=== PATIENT | female | born 1975 | race Caucasian/White ===

== ENCOUNTER 2025-08-04 12:45 | Emergency (ER) | payer SELFPAY ==
--- NOTE | 2025-08-04 12:46 | ED.EXTPRO ---
HPI - Extremity Problem General Stated complaint: R Leg Pain Time Seen by Provider: 08/04/25 12:46 Source: patient Mode of arrival: ambulatory Limitations: no limitations History of Present Illness HPI Narrative: Gokul is a 49 year old female patient presenting to the clinic today with c/o right leg pain x. She reports. Review of Systems Review of Systems: Pertinent positives per HPI. Patient denies any fever, chills, rash, headache, visual changes, dizziness, cough, runny nose, sore throat, shortness of breath, chest pain, palpitations, nausea, vomiting, diarrhea, constipation, abdominal pain, or any urinary issues. PMFSH Comments At the time of my signature, I reviewed and agree with the nursing past medical, surgical, social, and family history. There is no relevant family history pertinent to the patient complaint. Exam Narrative: General: Well-developed, well nourished, in no apparent distress Head: Normocephalic, atraumatic. Cardio: Regular rate and rhythm, s1 and s2 normal, no murmur appreciated. Resp: Clear to auscultation bilaterally, no rhonchi, rales, wheezing or rubs. Musculoskeletal: No deformity, non-tender to palpation, grossly normal range of motion, muscle strength strong and equal, peripheral pulse strong, no edema, no cyanosis, normal gait and station Course Course Level of Care: Express Care Visit MDM MDM Narrative Medical decision making narrative: At the time of visit patient is resting comfortably on the exam table. Patient appears to be nontoxic. Plan: Supportive measures were discussed with the patient and they voiced understanding discharge instructions and agrees to treatment plan. Return precautions reviewed Differential Diagnosis Differential Diagnosis: Differential diagnostic considerations for extremity problems include sprain/strain, fracture, DVT, herpes zoster, gout, cellulitis, superficial thrombophlebitis, physiologic edema. Discharge Plan Discharge Patient Language: Portuguese Follow-up/Referrals: UNKNOWN,DOCTOR [Non-Staff] Quality NIHSS Nursing Documentation ED NIHSS nursing documentation: reviewed/agree
--- NOTE | 2025-08-04 12:51 | ED.ABDPAIN ---
HPI - Abdominal Pain General Chief Complaint: Abdominal Pain Stated Complaint: R Leg Pain Time Seen by Provider: 08/04/25 12:46 Source: patient Mode of arrival: ambulatory Limitations: no limitations History of Present Illness HPI narrative: Gokul is a 49 year old female patient presenting to the clinic today with c/o right lower quadrant abdomen pain that started at 0700 this morning. She reports sharp right lower quadrant pain- pain is worse with movement of her right leg. Rates pain 8/10 currently. Took Tylenol at 1030 this morning with some relief. No recent falls, pulled muscle, or known injury. History of partial hyst- still has left ovary. No urinary symptoms or flank pain. No fever, chills, body aches, nausea, or vomiting. Last BM was yesterday and normal for the patient. Related Data Home Medications ?Medication ?Instructions ?Recorded ?Confirmed ?Last Taken ?Type levothyroxine 50 mcg tablet mcg 08/04/25 Unknown History Allergies Allergy/AdvReac Type Severity Reaction Status Date / Time No Known Allergies Allergy Verified 08/04/25 12:55 Review of Systems Review of Systems: Pertinent positives per HPI. Patient denies any fever, chills, rash, headache, visual changes, dizziness, cough, runny nose, sore throat, shortness of breath, chest pain, palpitations, nausea, vomiting, diarrhea, constipation, or any urinary issues. PMFSH Comments At the time of my signature, I reviewed and agree with the nursing past medical, surgical, social, and family history. There is no relevant family history pertinent to the patient complaint. Exam Narrative: General: Well-developed, obese, in no apparent distress. Head: Normocephalic, atraumatic. Cardio: Regular rate and rhythm, s1 and s2 normal, no murmur appreciated. Resp: Clear to auscultation bilaterally, no rhonchi, rales, wheezing or rubs. Abdomen: Soft, pliable, bowel sounds present in all quadrants, right lower quadrant abdomen tender to palpation, worsening with flexion of the right hip, no organomegly, no CVAT tenderness. Course Course Level of Care: Express Care Visit Vital Signs Vital signs: Vital Signs Temperature 36.8 C 08/04/25 12:56 Pulse Rate 90 08/04/25 12:56 Respiratory Rate 16 08/04/25 12:56 Blood Pressure 133/88 08/04/25 12:56 Pulse Oximetry 97 08/04/25 12:56 Temperature 36.8 C 08/04/25 12:56 Pulse Rate 90 08/04/25 12:56 Respiratory Rate 16 08/04/25 12:56 Blood Pressure 133/88 08/04/25 12:56 Pulse Oximetry 97 08/04/25 12:56 Transfer Transfered to: [facility] Transportation: Other (Private car) Transfer rationale: RLQ abdomen pain Accepting physician: Dr. Morrison Transfer comments: Private car- NPO MDM MDM Narrative Medical decision making narrative: At the time of visit patient is resting comfortably on the exam table. Patient appears to be nontoxic. C/o right lower quadrant abdomen pain that started at 0700 this morning. She reports sharp right lower quadrant pain- pain is worse with movement of her right leg. Rates pain 8/10 currently. Took Tylenol at 1030 this morning with some relief. No recent falls, pulled muscle, or known injury. History of partial hyst- still has left ovary. No urinary symptoms or flank pain. No fever, chills, body aches, nausea, or vomiting. Last BM was yesterday and normal for the patient. On exam patient has soft, pliable abdomen, nondistended, bowel sounds present all 4 quadrants, tenderness to palpation over the right lower quadrant and pain increases with movement of the right leg, no CVAT tenderness, no organomegaly Plan: Patient reporting sharp right lower quadrant abdominal pain-positive McBurney's point and pain with movement of the right leg. Recommend going to the ER for rule out appendicitis. Patient agrees to transfer and would like to go to [facility] emergency room. Report called to Dr. Morrison at [facility] and he accepts patient for transfer. Patient to go by private car-remain NPO Differential Diagnosis Differential Diagnosis: Differential diagnostic considerations for acute abdominal pain include surgical abdominal etiology, ischemic bowel, inflammatory bowel disease, gastritis, PUD, gastroenteritis, cardiac etiology, appendicitis, diverticulitis, bowel obstruction, kidney stone, pyelonephritis, abdominal aortic aneurysm, pancreatitis, constipation, surgical adhesions, hip muscle strain, endometriosis. Discharge Plan Discharge Clinical Impression: Abdominal pain, right lower quadrant Patient Disposition: Acute Care Hospital Condition: Stable Patient Language: Amharic Prescriptions: No Action levothyroxine 50 mcg tablet Follow-up/Referrals: UNKNOWN,DOCTOR [Non-Staff] Time of Disposition: 13:10 Quality NIHSS Nursing Documentation ED NIHSS nursing documentation: reviewed/agree
[2025-08-04 12:56] VITALS: BP 133/88; PULSE 90; RESP 16; TEMP 36.8; O2SAT 97
== END 2025-08-04 13:13 | disposition short-term general hospital (02) ==
PROVIDERS: Emergency Provider Nurse Practitioner Family; PCP Internal Medicine
DX: R10.31 Right lower quadrant pain (principal); E03.9 Hypothyroidism, unspecified
CPT/HCPCS: 99212; G0463

== ENCOUNTER 2025-08-04 13:33 | Emergency (ER) | payer SELFPAY ==
--- NOTE | ~2025-08-04 | US_ITS ---
EXAMINATION: US venous doppler LE RT, 08/04/2025 16:50 MEDICAL SPECIALIST HISTORY: pain Comparison: None Technique: Restrepo-scale and color Doppler images were attempted of the lower saphenofemoral junction, common femoral vein,superficial femoral vein, proximal deep femoral vein, proximal deep femoral vein, popliteal vein and posterior tibial veins. Findings: Deep Venous System:Normal flow, augmentation and compressibility. No echogenic thrombus identified. The contralateral saphenofemoral junction appears unremarkable. Superficial Venous SystemNo superficial thrombophlebitis. Soft tissues: Soft tissues are unremarkable. Impression: Negative for DVT. Reviewed, dictated and finalized at location P. CAL SPECIALIST Impression: Negative for DVT.
--- NOTE | ~2025-08-04 | CT_ITS ---
EXAM/PROCEDURE: CT abdomen pelvis w con HISTORY: RLQ pain COMPARISON: None available. TECHNIQUE: IV contrast enhanced CT of the abdomen and pelvis FINDINGS: Lung bases are clear other than minimal atelectatic and/or fibrotic appearing changes. Heart size normal. In the abdomen and pelvis, the bowel gas pattern is nonobstructive with no free air free fluid or pneumatosis. Patient appears to be status post hysterectomy. The appendix aorta and gallbladder all appear normal in size. No urolithiasis or obstructive ureteral stones. Mild pelvocaliectasis of the right kidney with no gross hydroureteronephrosis. The left kidney appears normal. Liver spleen pancreas and stomach as well as adrenal glands appear within normal limits for technique. No bulky mesenteric or retroperitoneal lymphadenopathy or masses seen. Small omentum containing umbilical hernia. Urinary bladder appears normal. Moderate amount of stool extends to the cecum. Diffuse degenerative changes throughout the bones. IMPRESSION: Mild pelvocaliectasis of the right kidney with no gross hydronephrosis or obstructing ureteral stones seen. The appendix appears normal. Reviewed, dictated and finalized at location A. LING MACHINE OPERATOR IMPRESSION: Mild pelvocaliectasis of the right kidney with no gross hydronephrosis or obstr ucting ureteral stones seen. The appendix appears normal.
[2025-08-04 13:56] VITALS: BP 133/87; PULSE 84; RESP 14; O2SAT 99
[2025-08-04 14:20] LABS: Hematocrit 43.3 % (37.0-47.0); Hemoglobin 14.5 g/dL (12.0-15.0); Immature Granulocyte Percent A 0.4 % (0-0.5); Lymphocytes Absolute Auto 1.28 K/mm3 (0.9-3.2); Mean Corpuscular HGB Conc 33.5 g/dl (32-36); Mean Corpuscular Hemoglobin 29.1 pg (26-34); Mean Corpuscular Volume 86.9 fl (80-100); Nucleated Red Blood Cells Absolute Auto 0.000 K/mm3 (0.0-0.012); Nucleated Red Blood Cells Perc 0.0 % (0.0-0.2); Platelet Count Result 291 k/mm3 (150-375); Red Blood Count 4.98 M/mm3 (4.2-5.4); White Blood Count 9.4 K/mm3 (4.5-10.0)
--- NOTE | 2025-08-04 14:23 | ED_ITS ---
HPI - Abdominal Pain General Chief Complaint: Abdominal Pain Stated Complaint: RLQ pain Time Seen by Provider: 08/04/25 13:44 History of Present Illness HPI narrative: Patient is a 49-year-old female who presents ER with pain to right lower quadrant and right inguinal crease. It began at 7:00 a.m. today. She can move her leg without having exquisite pain. It is only in this focal area. No radiation down leg. Numbness or tingling. Normal pulses. She does have pain in the right lower quadrant of the abdomen as well. Related Data Home Medications ?Medication ?Instructions ?Recorded ?Confirmed ?Last Taken ?Type levothyroxine 50 mcg tablet mcg 08/04/25 Unknown Hist ory Allergies Allergy/AdvReac Type Severity Reaction Status Date / Time No Known Allergies Allergy Verified 08/04/25 13:37 Review of Systems 2 Review of Systems: All systems reviewed & are unremarkable except as noted in HPI and below Constitutional: Constitutional: Reports no additional constitutional complaints Cardiovascular: Cardiovascular: Reports no additional cardiovascular complaints Respiratory: Respiratory: Reports no additional respiratory complaints Gastrointestinal: Gastrointestinal: Reports no additional gastrointestinal complaints Musculoskeletal: Musculoskeletal: Reports no additional musculoskeletal complaints PENDING SALE TO [facility] Past Medical History Medical History (Updated 08/04/25 @ 17:16 by Manfred Luna MD) Hypothyroidism Surgical History Surgical History (Updated 08/04/25 @ 14:27 by Manfred Luna MD) No history of previous surgery Exam 2 Narrative: GENERAL: Well-appearing, well-nourished, and in no acute distress. HEAD: Normocephalic, atraumatic. ENT: Mucous membranes moist. CHEST: Clear to auscultation. No respiratory distress. HEART: Regular rate and rhythm. Normal peripheral pulses. ABDOMEN: Soft, TTP RLQ with mild guarding, TTP right inguinal crease, nondistended. EXTREMITIES: RLE with pain at inguinal crease with minimal passive straight leg raise and leg rotation. NV intact. Normal LLE and BUE. No leg swelling. SKIN: Warm, dry, no rash. NEURO: Alert and oriented x3. PSYCH: Normal mood and affect. Course Course Emergency Course: Pain mildly improved with Toradol and morphine. Informed of imaging results. No DVT/appy. Suspect hip flexor strain and recommend rest/ice/elevation/nsaids. Vital Signs Vital signs: Vital Signs Pulse Rate 84 08/04/25 13:56 Respiratory Rate 14 08/04/25 13:56 Blood Pressure 133/87 08/04/25 13:56 Pulse Oximetry 99 08/04/25 13:56 Oxygen Delivery Room Air 08/04/25 13:56 Pulse Rate 74 08/04/25 14:46 Respiratory Rate 15 08/04/25 14:46 Blood Pressure 127/84 08/04/25 14:46 Pulse Oximetry 99 08/04/25 14:46 Oxygen Delivery Room Air 08/04/25 13:56 MDM Differential Diagnosis Differential Diagnosis: Lymphadenopathy, appendicitis, pyelonephritis, UTI, muscle strain, DVT Lab Data 08/04/25 14:15 08/04/25 14:15 Labs: Lab Results 08/04/25 08/04/25 Range/Units 14:15 14:32 WBC 9.4 (4.5-10.0) K/mm3 RBC 4.98 (4.2-5.4) M/mm3 Hgb 14.5 (12.0-15.0) g/dL Hct 43.3 (37.0-47.0) % MCV 86.9 (80-100) fl MCH 29.1 (26-34) pg MCHC 33.5 (32-36) g/dl RDW 12.4 (11.5-14.5) % Plt Count 291 (150-375) k/mm3 MPV 9.5 (7.4-10.4) fl Immature Gran % (Auto) 0.4 (0-0.5) % Neut % (Auto) 82.7 H (45.5-73.1) % Lymph % (Auto) 13.6 L (18.3-44.2) % Sanders % (Auto) 3.1 (2.6-8.5) % Eos % (Auto) 0.0 (0-4.4) % Baso % (Auto) 0.2 (0.2-1.2) % Lymph # (Auto) 1.28 (0.9-3.2) K/mm3 Sanders # (Auto) 0.3 (0.1-0.6) K/mm3 Eos # (Auto) 0.0 (0-0.3) K/mm3 Baso # (Auto) 0.0 (0.0-0.1) K/mm3 Abs Immat Gran (auto) 0.04 H (0.00-0.031) K/mm3 Absolute Neuts (auto) 7.8 H (1.3-6.7) K/mm3 Absolute Nucleated RBC 0.000 (0.0-0.012) K/mm3 Nucleated RBC % 0.0 (0.0-0.2) % Sodium 139 (137-145) mmol/L Potassium 4.3 (3.4-5.0) mmol/L Chloride 106 (98-107) mmol/L Carbon Dioxide 26 (22-30) mmol/L Anion Gap 7 (4-12) mmol/L BUN 16 (7-17) mg/dL Creatinine 0.69 L (0.7-1.0) mg/dL Estim Creat Clear Calc 85 ml/min Estimated GFR > 60 (59 - ) Glucose 109 (65-110) mg/dL Calcium 9.5 (8.4-10.2) mg/dL Total Bilirubin 0.5 (0.2-1.3) mg/dL AST 55 H (14-36) U/L ALT 66 H (6-35) U/L Alkaline Phosphatase 106 (38-126) U/L Total Protein 8.7 H (6.3-8.2) g/dL Albumin 4.9 (3.5-5.1) g/dL Lipase 67 (23-300) U/L Urine Color Yellow (Yellow) Urine Appearance Clear (Clear) Urine pH 6.5 (5.0-9.0) Ur Specific [place] 1.003 (1.001-1.035) Urine Protein Negative (Negative) mg/dL Urine Glucose (UA) Negative (Negative) mg/dL Urine Ketones Negative (Negative) mg/dL Ur Blood (Man) Negative (Negative) Urine Nitrate Negative (Negative) Urine Bilirubin Negative (Negative) Urine Urobilinogen 0.2 (<2.0) mg/dL Leukocyte Esterase Rfl Negative (Negative) ROZ/UL Imaging Data Radiologist's impression: ITS Impressions Abdomen/Pelvis CT 08/04/25 15:21 IMPRESSION: Mild pelvocaliectasis of the right kidney with no gross hydronephrosis or obstructing ureteral stones seen. The appendix appears normal. Venous Doppler Study 08/04/25 17:09 Impression: Negative for DVT. Discharge Plan Discharge Clinical Impression: Strain of flexor muscle of hip Patient Disposition: Home Condition: Stable Instructions: Muscle Strain (ED), P.R.I.C.E. Treatment (ED) Additional Instructions: Return ER if you have chest pain shortness of breath, you have increasing pain, or you have additional concerns. Patient Language: Mongolian Prescriptions: New cyclobenzaprine 10 mg tablet 10 mg PO TID PRN (Reason: muscle spasm) Qty: 14 0RF hydrocodone-acetaminophen 5-325 mg tablet 1 tablet PO Q6H PRN (Reason: pain) Qty: 14 0RF naproxen 375 mg tablet 375 mg PO BID Qty: 14 0RF No Action levothyroxine 50 mcg tablet Follow-up/Referrals: Ezio,MD Concepcion [Primary Care Provider, Unknown] - 1 Week
[2025-08-04] MEDS: KETOROLAC 30 MG/ML VIAL (*BKC) IV PUSH (14:25)
[2025-08-04] MEDS: SODIUM CHLORIDE 0.9% IV 1,000 ML 999 ML IV CONT (14:25)
[2025-08-04] MEDS: MORPHINE SULFATE (*CRX) 4 MG/ML INJ IV PUSH (14:25)
[2025-08-04 14:34] LABS: Alanine Aminotransferase 66 U/L (6-35); Albumin Level 4.9 g/dL (3.5-5.1); Alkaline Phosphatase 106 U/L (38-126); Anion Gap 7 mmol/L (4-12); Aspartate Amino Transferase 55 U/L (14-36); Bilirubin,Total 0.5 mg/dL (0.2-1.3); Blood Urea Nitrogen 16 mg/dL (7-17); Calcium 9.5 mg/dL (8.4-10.2); Carbon Dioxide 26 mmol/L (22-30); Chloride 106 mmol/L (98-107); Estimated CRCL calculation 85 ml/min; Estimated Glomerular Filt Rate > 60; Glucose 109 mg/dL (65-110); Lipase 67 U/L (23-300); Potassium 4.3 mmol/L (3.4-5.0); Sodium 139 mmol/L (137-145); Total Protein 8.7 g/dL (6.3-8.2)
[2025-08-04 14:37] LABS: Add Urine Microscopic? NO; Appearance Urine Clear (Clear); Glucose Urine UA Negative (Negative); Leukocyte Esterase Ur Negative LEU/UL (Negative); Nitrate Urine Negative (Negative); Specific Grav Ur 1.003 (1.001-1.035)
[2025-08-04 14:46] VITALS: BP 127/84; PULSE 74; RESP 15; O2SAT 99
[2025-08-04 17:15] VITALS: BP 112/80; PULSE 72; RESP 13; O2SAT 99
[2025-08-04 18:00] VITALS: BP 116/71; PULSE 74; RESP 15; O2SAT 100
--- OUTSIDE RECORDS SUMMARY | 2025-08-04 19:12 | XMS_ITS | Encounter Summary ---
Author Organization [facility] Address [address] [place] [address] Care Team Providers Care Gusset Ripper Name Role Phone Concepcion Holguin MD Primary Care Provider [phone] Encounter Details Date Type Department Care Team (Late st Contact Info) Description 05/22/2022 [employer] Message Enc [facility] - [address] [address] [address] [place] [address] [employer], [facility] Provider Lab results Social History Tobacco Use Types Packs/Day Years Used Date Smoking Tobacco: Never Smokeless Tobacco: Never Comments:counseled by Dr Nereida lawton Alcohol Use Standard Drinks/Week Comments Never 0 (1 standard drink = 0.6 oz pur e alcohol) PHQ-2 Answer Date Recorded PHQ-2 Score - If the patient scores above 3, please move on to questions 3-9 2 05/21/2022 Comments No Sex and Gender Information Value Date Recorded Sex Assigned at Not on file Legal Sex Female 10:03 AM CDT Gender Identity Not on file Sexual Orientation Not on file COVID-19 Exposure Response Date Recorded In the last 10 days, have yo u been in contact with someone who was confirmed or suspected to have Coronavirus/COVID-19? No / Unsure 05/21/2022 10:18 AM CDT documented as of this encounter Plan of Treatment Not on file documented as of this encounter Visit Diagnoses Not on filedocumented in this encounter Care Teams Gusset Ripper Relationship Specialty Start Date End Date Concepcion Holguin MD [address] [facility] [address] [place] [address] PCP - General INTERNAL MEDICINE 05/21/22 documented as of this encounter
--- OUTSIDE RECORDS SUMMARY | 2025-08-04 19:12 | XMS_ITS | Clinical Summary ---
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 TAKE 1 TABLET BY MOUTH ONCE DAILY IN THE MORNING 90 tablet 5 Active levothyroxine (SYNTHROID) 50 MCG tabletIndicatio ns: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 TAKE 1 TABLET BY MOUTH ONCE DAILY IN THE MORNING 90 tablet 5 025 Discontinued Active Problems Problem Noted Date Diagnosed Date Hypothyroid 05/21/2022 Anxiety 05/21/2022 Immunizations Immunization Administration Dates Next Due Tdap (Generic) 08/26/2019 Family History Medical History Relation Comments Heart Disease Father Heart surgery Relation Status Comments Father Social History Tobacco Use Types Packs/Day Years Used Date Smoking Tobacco: Never Passive Smoke Exposure: Never Smokeless Tobacco: Never Tobacco Cessation:Counseling Given: Yes Comments:counseled by Dr Holguin Alcohol Use Standard Drinks/Week Comments Never 0 (1 standard drink = 0.6 oz pur e alcohol) PHQ-2 Answer Date Recorded Patient Health Questionnaire-2 Score 0 10/10/2023 Comments No Sex and Gender Information Value Date Recorded Sex Assigned at Not on file Legal Sex Female 10:03 AM CDT Gender Identity Not on file Sexual Orientation Not on file Last Filed Vital Signs Vital Sign Reading Time Taken Comments Blood Pressure 129/84 04/06/2024 8:54 AM CDT Pulse 69 04/06/2024 8:54 AM CDT Temperature 36.4 C (97.5 F) 04/06/2024 8:54 AM CDT Respiratory Rate 18 04/06/2024 8:54 AM CDT Oxygen Saturation 97% 04/06/2024 8:54 AM CDT Inhaled Oxygen Concentration - - Weight 74.2 kg (163 lb 9.6 oz) 04/06/2024 8:54 A M CDT Height 157.5 cm (5' 2) 04/06/2024 8:54 AM CDT Body Mass Index 29.92 04/06/2024 8:54 AM CDT Plan of Treatment Health Maintenance Due Date Last Done Comments Hepatitis B Vaccines (1 of 3 - 19+ 3-dose series) 1992 Pneumococcal Vaccine: 50+ Years (1 of 1 - PCV) 12/30/2023 Zoster Vaccines (1 of 2) 12/30/2023 PHQ-2 (Physician [place]) 08/25/2024 10/10/2023 Annual Physical 09/12/2024 09/12/2023, 05/21/2022 COVID-19 Vaccine (3 - 2024-2 6 season) 2025 12/14/2020, 11/23/2020 Influenza Adult (#1) 2025 Colorectal Cancer Screening FIT-DNA (3 Years) 07/12/2025 07/12/2022, 07/12/2022 Mammogram Screening 11/19/2025 11/20/2023 DTaP, Tdap and Td Vaccines ( 2 - Td or Tdap) 08/26/2029 08/26/2019 Hepatitis C Completed 05/21/2022 Hepatitis A Vaccines Aged Out No long er eligible based on patient's age to complete this topic Meningococcal B Vaccine Aged Out No l onger eligible based on patient's age to complete this topic Meningococcal Vaccine Aged Out No nathaly marine eligible based on patient's age to complete this topic RSV Immunizations Under 20 Months Aged Out No longer eligible b ased on patient's age to complete this topic Procedures Procedure Name Priority Date/Time Associated Diagnosis Comments MG SCREENING W ELISEO CHIKI DIGI Routine 11/20/2023 2:45 PM CDT Encounter for screening mammogram for malignant neoplasm of breast COLOGUARD (EXACT SCIENCE) Routine 07/12/2022 11:45 AM NEWS PRODUCER Colon cancer screening HEPATITIS C ANTIBODY Routine 05/21/2022 11:46 AM CDT Annual physical exam Encounter for medical examination to establish care General medical exam Encounter for hepatitis C screening test for low risk patient from Last 3 Months or Most Recently Relevant to Health Maintenance Results * MG SCREENING W ELISEO CHIKI DIGI (11/20/2023 2:45 PM CDT) Anatomical Region Laterality Modality Breast Bilateral Mammography 11/20/2023 4:26 PM CDT Narrative 11/20/2023 4:30 PM CDT EXAMINATION: Digital bilateral screening mammogram with 3-D tomosynthesis EXAM DATE/TIME: 11/20/2023 2:42 PM REASON FOR EXAM: screening COMPARISON: Baseline exam Technique: Digital screening mammography of both breasts was performed in addition to 3-D Tomosynthesis technique. This study was read with the assistance of a computer-aided detection system. Tissue density: There are scattered areas of fibroglandular density. Findings: Benign lymph node in upper outer quadrant of the left breast. Benign nodularity. There is no focal asymmetry, dominant mass lesion, area of skin thickening, or cluster of suspicious appearing calcifications in either breast to suggest malignancy. ===== IMPRESSION: ===== 1. No mammographic evidence of malignancy Assessment: ACR BI-RADS 2 - BENIGN FINDING(S) Recommendation: 1:Routine Screening Bilateral Comments: Ordered By: CONCEPCION HOLGUIN Interpreted By: Jimy Chowdary, 11/20/2023 4:26 PM Concepcion Holguin MD MAMMO Final Result * COLOGUAYAQUELIN (EXACT SCIENCE) (07/12/2022 11:45 AM NEWS PRODUCER) COLOGUARD RESULT Negative Negative [employer] [facility] (CLIA #:[id number]) Comment: NEGATIVE TEST RESULT. A negative Cologuard result indicates a low likelihood that a colorectal cancer (CRC) or advanced adenoma (adenomatous polyps with more advanced pre-malignant features) is present. The chance that a person with a negative Cologuard test has a colorectal cancer is less than 1 in 1500 (negative predictive value >99.9%) or has an advanced adenoma is less than 5.3% (negative predictive value 94.7%). These data are based on a prospective cross-sectional study of 10,000 individuals at average risk for colorectal cancer who were screened with both Cologuard and colonoscopy. (Yoni Soler et al, N Engl J Med 2014;370(14):1035-2246) The normal value (reference range) for this assay is negative. COLOGUARD RE-SCREENING RECOMMENDATION: Periodic colorectal cancer screening is an important part of preventive healthcare for asymptomatic individuals at average risk for colorectal cancer. Following a negative Cologuard result, the [place] [employer] Society and U.S. Multi-Society Task Force screening guidelines recommend a Cologuard re-screening interval of 3 years. References: [place] [employer] Guideline for Colorectal Cancer Screening: https://www.cancer.org/cancer/hwccw-eisohd-zgeyym/hbupuaibc-gbmpqpgjp-hkalywq/ac s-rec ommendations.html.; Yovanny DK, Terrence CR, Galileo BernardK, Colorectal Cancer Screening: Recommendations for Physicians and Patients from the U.S. Multi-Society Task Force on Colorectal Cancer Screening , Am J Gastroenterology 2017; 112:0578-6636. TEST DESCRIPTION: Composite algorithmic analysis of stool DNA-biomarkers with hemoglobin immunoassay. Quantitative values of individual biomarkers are not reportable and are not associated with individual biomarker result reference ranges. Cologuard is intended for colorectal cancer screening of adults of either sex, 45 years or older, who are at average-risk for colorectal cancer (CRC). Cologuard has been approved for use by the U.S. FDA. The performance of Cologuard was established in a cross sectional study of average-risk adults aged 50-84. Cologuard performance in patients ages 45 to 49 years was estimated by sub-group analysis of near-age groups. Colonoscopies performed for a positive result may find as the most clinically significant lesion: colorectal cancer [4.0%], advanced adenoma (including sessile serrated polyps greater than or equal to 1cm diameter) [20%] or non- advanced adenoma [31%]; or no colorectal neoplasia [45%]. These estimates are derived from a prospective cross-sectional screening study of 10,000 individuals at average risk for colorectal cancer who were screened with both Cologuard and colonoscopy. (Yoni Friedman al, N Engl J Med 2014;370(14):7823-1612.) Cologuard may produce a false negative or false positive result (no colorectal cancer or precancerous polyp present at colonoscopy follow up). A negative Cologuard test result does not guarantee the absence of CRC or advanced adenoma (pre-cancer). The current Cologuard screening interval is every 3 years. ([place] [employer] and U.S. Multi-Society Task Force). Cologuard performance data in a 10,000 patient pivotal study using colonoscopy as the reference method can be accessed at the following location: www.[employer]/results. Additional description of the Cologuard test process, warnings and precautions can be found at www.[employer].com. STOOL STOOL SPECIMEN / Unknown 07/12/2022 11:45 AM NEWS PRODUCER 07/13/2022 11:31 AM NEWS PRODUCER Concepcion Holguin MD BODY FLUIDS AND STOOLS ORDERABLE S Final Result [facility], [facility] [address] [place] [address], [facility] (CLIA #:[id number]) [address] [place] [address] * HEPATITIS C ANTIBODY (05/21/2022 11:46 AM CDT) HEPATITIS C AB NON-REACTI VE NON-REACT ALECIA 05/21/2022 10:05 PM CDT [facility] Comment: ANTIBODIES TO HCV NOT DETECTED. DOES NOT EXCLUDE THE POSSIBILITY OF EXPOSURE TO HCV. 05/21/2022 11:4 6 AM CDT Concepcion Holguin MD LABORATORY Final Result [facility] [address] [place] [address], [place] [phone] [id number] from Last 3 Months or Most Recently Relevant to Health Maintenance Care Teams Director Of Loss Prevention Relationship Specialty Start Date End Date Concepcion Holguin MD [facility] [facility] [address] [place] [address] PCP - General INTERNAL MEDICINE 05/21/22
--- OUTSIDE RECORDS SUMMARY | 2025-08-04 19:12 | XMS_ITS | Encounter Summary ---
Author Organization [facility] - [facility] Address [facility] [place] [address] Care Team Providers Care Online Marketing Analyst Name Role Phone Concepcion Holguin MD Primary Care Provider [phone] Encounter Details Date Type Department Care Team (Latest Contact Info) Description 01/04/2023 [employer] Message Enc [facility] Medical Group Multispecialty Care - [address] [place] [address] [place] [address] [place] [address] [address] [place] [address] Medication follow up Social History Tobacco Use Types Packs/Day Years Used Date Smoking Tobacco: Never Smokeless Tobacco: Never Comments:counseled by Dr Nereida lawton Alcohol Use Standard Drinks/Week Comments Never 0 (1 standard drink = 0.6 oz pur e alcohol) PHQ-2 Answer Date Recorded PHQ-2 Score - If the patient scores above 3, please move on to questions 3-9 1 06/21/2022 Comments No Sex and Gender Information Value Date Recorded Sex Assigned at Not on file Legal Sex Female 10:03 AM CDT Gender Identity Not on file Sexual Orientation Not on file documented as of this encounter Plan of Treatment Not on file documented as of this encounter Visit Diagnoses Not on filedocumented in this encounter Additional Health Concerns Assessment Noted Time PHQ-9 Depression Total Score: 5 06/21/20 22 8:41 AM CDT documented as of this encounter Care Teams Online Marketing Analyst Relationship Specialty Start [place] [address] [place] [address] [address] [place] [address] PCP - General INTERNAL MEDICINE 05/21/22 documented as of this encounter
--- OUTSIDE RECORDS SUMMARY | 2025-08-04 19:13 | XMS_ITS | Encounter Summary ---
Author Organization [facility] Address [address] [place] [address] Care Team Providers Care Warper Creeler Name Role Phone Concepcion Holguin MD Primary Care Provider [phone] Encounter Details Date Type Department Care Team (Late st Contact Info) Description 08/14/2023 [employer] [facility] [address] [place] [address] [facility] Social History Tobacco Use Types Packs/Day Years [...] documented as of this encounter Care Teams Warper Creeler Relationship Specialty Start Date End Date Concepcion Holguin MD [address] [facility] [address] [place] [address] PCP - General INTERNAL MEDICINE 05/21/22 documented as of this encounter
--- OUTSIDE RECORDS SUMMARY | 2025-08-04 19:13 | XMS_ITS | Clinical Summary ---
Author Organization [facility] Address [address] [place] [address] Care Team Providers Care Electronics Engineer Name Role Phone Unavailable Primary Care Provider Unavailabl e Social History Tobacco Use Types Packs/Day Years Used Date Smoking Tobacco: Never Assessed Comments Unknown Sex and Gender Information Value Date Recorded Sex Assigned at Not on file Legal Sex Female 1:51 PM EST Gender Identity Not on file Sexual Orientation Not on file Plan of Treatment Not on file Medical Devices Not on file
--- OUTSIDE RECORDS SUMMARY | 2025-08-04 19:13 | XMS_ITS | Encounter Summary ---
Author Organization [facility] - [facility] Address [address] [place] [address] Care Team Providers Care Vegetable Buncher Name Role Phone Concepcion Holguin MD Primary Care Provider [phone] Encounter Details Date Type Department Care Team (Late st Contact Info) Description 01/31/2023 [employer] Dein Lern[employer] im Leben Message Enc [facility] Medical Group Multispecialty Care - [place] [address] [address] [place] [address] [employer], [facility] Provider Lab results Social History Tobacco Use [...] documented as of this encounter Care Teams Vegetable Buncher Relationship Specialty Start Date End Date Concepcion Holguin MD [address] [facility] [address] [place] [address] PCP - General INTERNAL MEDICINE 05/21/22 documented as of this encounter
--- OUTSIDE RECORDS SUMMARY | 2025-08-04 19:14 | XMS_ITS | Encounter Summary ---
Author Organization [facility] - [facility] Address [address] [place] [address] Care Team Providers Care Reducer Name Role Phone Concepcion Holguin MD Primary Care Provider [phone] Encounter Details Date Type Department Care Team (Late st Contact Info) Description 05/23/2023 Infectioust Message Enc [facility] Medical Group Multispecialty Care - [place] [address] [address] [place] [address] Kay Topete NP Follow up visit Social History Tobacco Use Types Packs/Day Years [...] documented as of this encounter Care Teams Reducer Relationship Specialty Start Date End Date Concepcion Holguin MD [address] [facility] [address] [place] [address] PCP - General INTERNAL MEDICINE 05/21/22 documented as of this encounter
== END 2025-08-04 18:01 | disposition home or self-care (01) ==
PROVIDERS: Emergency Provider Emergency Medicine; PCP Internal Medicine
DX: S76.019A Strain of muscle, fascia and tendon of unspecified hip, initial encounter (principal); E03.9 Hypothyroidism, unspecified; X58.XXXA Exposure to other specified factors, initial encounter
CPT/HCPCS: 36415; 74177; 80053; 81003; 83690; 85025; 93971; 96361; 96374; 96375; 99284; J1885; J2270; J7030; Q9967